=== PATIENT | male | born 1980 | race Hispanic/Latino ===

== ENCOUNTER 2022-09-17 18:21 | Emergency (ER) | payer SELFPAY ==
[2022-09-17 18:25] VITALS: BP 163/87; PULSE 87; RESP 14; TEMP 36.6; O2SAT 96
== END 2022-09-17 23:30 | disposition left against medical advice (07) ==
PROVIDERS: PCP Internal Medicine
DX: S51.012A Laceration without foreign body of left elbow, initial encounter (principal)
CPT/HCPCS: 99199

== ENCOUNTER 2024-05-21 11:17 | Outpatient (CLI) | payer OTHER, SELFPAY ==
[2024-05-21 19:29] LABS: Alanine Aminotransferase 44 U/L (6-50); Albumin Level 4.3 g/dL (3.5-5.1); Alkaline Phosphatase 83 U/L (38-126); Anion Gap 5 mmol/L (4-12); Aspartate Amino Transferase 37 U/L (17-59); Bilirubin,Total 0.9 mg/dL (0.2-1.3); Blood Urea Nitrogen 11 mg/dL (9-20); Calcium 9.1 mg/dL (8.4-10.2); Carbon Dioxide 32 mmol/L (22-30); Chloride 103 mmol/L (98-107); Cholesterol 195 mg/dL (0-200); Estimated Glomerular Filt Rate > 60; Glucose 133 mg/dL (65-110); HDL Direct 35 mg/dL; Potassium 4.3 mmol/L (3.4-5.0); Sodium 140 mmol/L (137-145); Triglycerides 161 mg/dL (<150)
[2024-05-21 19:31] LABS: Basophils Percent Auto 0.6 % (0.2-1.2); Eosinophils Absolute Auto 0.2 K/mm3 (0-0.3); Eosinophils Percent Auto 2.6 % (0-4.4); Hematocrit 46.5 % (42.0-52.0); Hemoglobin 15.7 g/dL (14.0-18.0); Immature Granulocyte Absolute 0.02 K/mm3 (0.00-0.031); Immature Granulocyte Percent A 0.3 % (0-0.5); Lymphocytes Absolute Auto 1.83 K/mm3 (0.9-3.2); Lymphocytes Percent Auto 28.2 % (18.3-44.2); Mean Corpuscular HGB Conc 33.8 g/dl (32-36); Mean Corpuscular Hemoglobin 29.9 pg (26-34); Mean Corpuscular Volume 88.6 fl (80-100); Mean Platelet Volume 11.1 fl (7.4-10.4); Monocytes Absolute Auto 0.5 K/mm3 (0.1-0.6); Monocytes Percent Auto 7.7 % (2.6-8.5); Neutrophils Absolute Auto 3.9 K/mm3 (1.3-6.7); Neutrophils Percent Auto 60.6 % (45.5-73.1); Platelet Count Result 235 k/mm3 (150-375); Red Blood Count 5.25 M/mm3 (4.6-6.20); Red Cell Distribution Width 12.1 % (11.5-14.5); White Blood Count 6.5 K/mm3 (4.5-10.0)
[2024-05-21 19:40] LABS: LDL Cholesterol Direct 150 mg/dL
[2024-05-21 20:01] LABS: Hemoglobin A1C 6.8 % (<5.7)
== END 2024-05-21 11:18 | disposition home or self-care (01) ==
LOC: ANHGOSHLAB 11:19
PROVIDERS: PCP Emergency Medicine; Visit Provider Emergency Medicine
DX: I10 Essential (primary) hypertension (principal); R73.01 Impaired fasting glucose
CPT/HCPCS: 36415; 80053; 80061; 83036; 85025

== ENCOUNTER 2025-03-19 12:32 | Outpatient (CLI) | payer OTHER, SELFPAY ==
--- OUTSIDE RECORDS SUMMARY | 2025-03-19 13:31 | XMS_ITS | Clinical Summary ---
Author [place] [facility] [place] [address] [facility] [address] Address [address] [facility] [address] Care Team Providers Care Public Relations Senior Associate Name Role Phone Tami Sparks MD Primary Care Prov ider Allergies No known active allergies Medications No known medications Active Problems No known active problems Surgical History Surgery Date Site/Laterality Comments APPENDECTOMY ARM SURGERY Medical History Medical History Date Comments Hyperlipidemia Family History Medical History Relation Name Comments Diabetes Father Diabetes Mother Relation Name Status Comments Father Alive Mother Alive Social History Tobacco Use Types Packs/Day Years Used Date Smoking Tobacco: Light Smoker Personal Safety Answer Date Recorded Getting School Help Needed Not on file 01/19 Sex and Gender Information Value Date Recorded Sex Assigned at Not on file 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 Gender Identity Not on file Sexual Orientation Not on file Obstetrics History Last Filed Vital Signs Vital Sign Reading Time Taken Comments Blood Pressure 128/66 08/16/2021 9:07 AM CDT Pulse 82 08/16/2021 9:07 AM CDT Temperature 36.4 C (97.5 F) 08/16/2021 9:07 AM CDT Respiratory Rate 18 08/16/2021 9:07 AM CDT Oxygen Saturation 97% 08/16/2021 9:07 AM CDT Inhaled Oxygen Concentration - - Weight 119.3 kg (263 lb) 08/16/2021 9:07 AM CDT Height 182.9 cm (6') 08/16/2021 9:07 AM CDT Body Mass Index 35.67 08/16/2021 9:07 AM CDT Plan of Treatment Health Maintenance Due Date Last Done Comments Depression Screening 1980 Hepatitis C Screening 1980 DTaP/Tdap/Td Vaccine (1 - Tdap) 1991 Varicella Vaccines (1 of 2 - 13+ 2-dose series) 1993 Hepatitis B Screening 1998 Regular Well Visit/Exam 18-64 1998 Pneumococcal vaccine <65 (1 of 2 - PCV) 1999 Covid-19 Vaccine (4 - 2023-2 5 season) 2024 02/09/2022, 09/15/2021, 08/24/2021 Influenza Vaccine (Season Ended) 2025 09/01/2021 HPV Vaccines Aged Out No longer eligi ble based on patient's age to complete this topic Insurance [facility] Address: [place] [id number] [facility] Address: [address] [place] [address] Care Teams Public Relations Senior Associate Relationship Specialty Start Date End Date Tami Sparks MD PCP - General 06/15/21
--- OUTSIDE RECORDS SUMMARY | 2025-03-19 13:31 | XMS_ITS | Referral Summary ---
Author Organization [facility] [place] [address] [facility] [address] Address [address] [place] [address] Care Team Providers Care Adobe Architect Name Role Phone Tami Sparks MD Primary Care Prov ider Allergies No known active allergies Medications No known medications Active Problems No known active problems Social History Tobacco Use Types Packs/Day Years Used Date Smoking Tobacco: Light Smoker Personal Safety Answer Date Recorded Getting School Help Needed Not on file 01/19 Sex and Gender Information Value Date Recorded Sex Assigned at Not on file 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
[2025-03-19 19:50] LABS: Microalbumin Urine Random 6.5 mg/L (0-16.7)
[2025-03-19 19:56] LABS: Creatinine Urine 82.1 mg/dL; MALB Creatinine Ratio 7.9 mg/g (0-30)
[2025-03-19 19:58] LABS: Alanine Aminotransferase 50 U/L (6-50); Albumin Level 4.4 g/dL (3.5-5.1); Alkaline Phosphatase 74 U/L (38-126); Anion Gap 6 mmol/L (4-12); Aspartate Amino Transferase 38 U/L (17-59); Bilirubin,Total 1.2 mg/dL (0.2-1.3); Blood Urea Nitrogen 13 mg/dL (9-20); Calcium 9.3 mg/dL (8.4-10.2); Carbon Dioxide 30 mmol/L (22-30); Chloride 101 mmol/L (98-107); Cholesterol 186 mg/dL (0-200); Estimated Glomerular Filt Rate > 60; Glucose 127 mg/dL (65-110); HDL Direct 30 mg/dL; Potassium 4.4 mmol/L (3.4-5.0); Sodium 137 mmol/L (137-145); Triglycerides 110 mg/dL (<150)
[2025-03-19 20:19] LABS: LDL Cholesterol Direct 128 mg/dL
[2025-03-19 21:06] LABS: Hemoglobin A1C 6.9 % (<5.7)
== END 2025-03-19 12:33 | disposition home or self-care (01) ==
LOC: ANHGOSHLAB 12:33
PROVIDERS: PCP Student in an Organized Health Care Education/Training Program; Visit Provider Student in an Organized Health Care Education/Training Program
DX: E78.5 Hyperlipidemia, unspecified (principal); E11.9 Type 2 diabetes mellitus without complications; I10 Essential (primary) hypertension
CPT/HCPCS: 36415; 80053; 80061; 82043; 83036; 84443